=== PATIENT | female | born 1965 | race Caucasian/White ===

== ENCOUNTER 2016-04-21 14:46 | Emergency (ER) | payer OTHER ==
[~2016-04-21 14:46] MED LIST: PREDNISONE 20MG20 MG PO; VISTARIL25 MG PO
[2016-04-21 14:55] VITALS: BP 145/86
--- NOTE | 2016-04-21 16:59 | ED ANKLE/FOOT INJURY COMPLAINT ---
History of Present Illness General Chief Complaint: Foot or Ankle Injury Stated Complaint: PT LEFT ANKLE IS HAVING PAIN Source: patient Exam Limitations: no limitations Vital Signs & Intake/Output Vital Signs & Intake/Output Vital Signs Date Time Temp Pulse Resp B/P Pulse O2 O2 Flow FiO2 Ox Delivery Rate 04/21 1455 97.0 82 20 145/86 96 Room Air ED Intake and Output 04/22 0000 04/21 1200 Intake Total 0 Output Total Balance 0 Intake, Oral 0 Allergies Coded Allergies: MDX - Poison Desiree Extract, Alum Prec (POISON DESIREE EXTRACT, ALUM PRECIPITAT) ( Intermediate, RASH 01/11/12) Reconcile Medications Hydroxyzine Pamoate (Vistaril) 25 MG CAP 1 CAP PO BID PRN ITCHING Prednisone 20 MG TABLET 2 TAB PO DAILY CONTACT DERMATITIS Triage Note: PT C/O LEFT ANKLE PAIN. STATES SHE WAS WALKING DOWN A HILL THAT HAD SAND ON IT AND SHE FELL. STATES THIS HAPPENED 3 WEEKS AGO AND ITS NOT GETTING BETTER Triage Nurses Notes Reviewed? yes HPI: THIS PATIENT is a 50-year-old female who presented to the emergency department today for evaluation of left ankle pain. The patient for that she slid down a hill the headstand on it approximately 3 weeks ago and twisted her ankle. She reported that sometimes the pain gets up to a 10 out of 10 and is worse with movement and ambulation. She has been walking on her left ankle. The patient denies any knee pain or hip pain. She denied any numbness or tingling in her extremities. The pain has been constant. (MYESHA SANDERS PA-C) Past History Travel History Traveled to [place] past 21 day No Medical History Any Pertinent Medical History? see below for history Cardiovascular: hypertension Musculoskeletal: osteoarthritis Endocrine: THYROID DISORDER Tetanus Vaccine: 10/11/12 Surgical History Surgical History: non-contributory Psychosocial History What is your primary language Citizen Of [place] Tobacco Use: Never used ETOH Use: denies use Illicit Drug Use: denies illicit drug use Family History Hx Contributory? No (MYESHA SANDERS PA-C) Review of Systems Review of Systems Constitutional: Reports: no symptoms. EENTM: Reports: no symptoms. Respiratory: Reports: no symptoms. Cardiovascular: Reports: no symptoms. GI: Reports: no symptoms. Genitourinary: Reports: no symptoms. Musculoskeletal: Reports: see HPI. Skin: Reports: no symptoms. Neurological/Psychological: Reports: no symptoms. All Other Systems: Reviewed and Negative (TOMMY CANELA,MYESHA) Physical Exam Physical Exam Leg/Knee/Thigh Left: normal range of motion, normal inspection Comments: Well-developed well-nourished person in no acute distress HEENT: Head normocephalic, moist mucous membranes Neck: Supple, no lymphadenopathy Back: Normal inspection Respiratory: No respiratory distress. Speaking in full sentences Left ankle/foot: Mild amount of edema to the lateral malleolus. Full range of motion at the ankle. Tenderness to palpation over the lateral malleolus. Dorsalis pedis and posterior tibialis pulses 2+ and strong. Capillary refill less than 2 seconds Neuro: Alert and oriented x3 Psych: Mood affect normal, normal memory normal judgment. Skin: Warm and dry, no rash on exposed skin (MYESHA SANDERS PA-C) Progress Differential Diagnosis: DVT, CHF, cellulitis, septic arthritis, gout, fracture, dislocation, sprain, contusion, compartmental syndrome Plan of Care: Orders Procedure Date/time Status Durable Medical Equipment 04/21 1734 Active Diagnostic Imaging: Viewed by Me: Radiology Read. Discussed w/RAD: Radiology Read. Radiology Impression: PATIENT: MEGAN BROWN PRESENT AGE: 50 PATIENT ACCOUNT NO: [id number] : 65 LOCATION: [facility] ORDERING PHYSICIAN: NELLY SHEEHAN SERVICE DATE: 04/21/16 EXAM TYPE: RAD - XRY-ANKLE 3 OR MORE VIEWS L EXAMINATION: XR ANKLE, LEFT CLINICAL INFORMATION: Pain status post injury. Evaluate for fracture. COMPARISON: None TECHNIQUE: AP, lateral, and mortise views of the left ankle. FINDINGS: No acute fracture or dislocation. Old ununited avulsion fragment versus accessory ossicle is seen at the tip of the medial malleolus. Joint spaces are maintained. Mild degenerative spurring is seen at the medial malleolus. Posterior calcaneal spurring is seen at the Achilles tendon insertion site. No joint effusion. IMPRESSION: No acute fracture or dislocation seen. DICTATED BY: PAULA SHAH MD DATE/TIME DICTATED:04/21/161718 MILK BOTTLING MACHINE OPERATOR:KD DATE/TIME TRANSCRIBED:1718 CONFIDENTIAL, DO NOT COPY WITHOUT APPROPRIATE AUTHORIZATION. < Electronically signed in Other Vendor System> SIGNED BY: PAULA SHAH MD 04/21/16 1727 (MYESHA SANDERS PA-C) Departure Departure Disposition: HOME OR SELF CARE Condition: Stable Clinical Impression Primary Impression: Ankle sprain Qualifiers: Encounter type: initial encounter Involved ligament of ankle: unspecified ligament Laterality: left Qualified Code: S93.402A - Sprain of unspecified ligament of left ankle, initial encounter Referrals: VIKKI GONZALEZ,ANU Gayle (PCP/Family) ESHA GONZALEZ,DODIE Additional Instructions: Please rest your ankle. Use the Kerwin wrap provided to you here in the emergency Department for extra compression, stability, and support of your ankle. Use the crutches provided to you as needed. Weightbearing as tolerated. Apply ice to the affected area for 15-20 minutes, 3-4 times a day. Elevate your ankle when possible. Follow-up with the orthopedic physician should her symptoms persist or worsen after one week. Return for any worsening symptoms or concerns. Departure Forms: Customer Survey General Discharge Information (MYESHA SANDERS PA-C) PA/ANAESTHESIOLOGIST Co-Sign Statement Statement: ED Attending supervision documentation- [] I saw and evaluated the patient. I have also reviewed all the pertinent lab results and diagnostic results. I agree with the findings and the plan of care as documented in the PA's/ANAESTHESIOLOGIST's documentation. [X] I have reviewed the ED Record and agree with the PA's/ANAESTHESIOLOGIST's documentation. [] Additions or exceptions (if any) to the PAs/ANAESTHESIOLOGIST's note and plan are summarized below: [] (ROLDAN GONZALEZ,JOHN)
--- NOTE | 2016-04-21 17:27 | RADIOLOGY REPORT ---
EXAMINATION: XR ANKLE, LEFT CLINICAL INFORMATION: Pain status post injury. Evaluate for fracture. COMPARISON: None TECHNIQUE: AP, lateral, and mortise views of the left ankle. FINDINGS: No acute fracture or dislocation. Old ununited avulsion fragment versus accessory ossicle is seen at the tip of the medial malleolus. Joint spaces are maintained. Mild degenerative spurring is seen at the medial malleolus. Posterior calcaneal spurring is seen at the Achilles tendon insertion site. No joint effusion. IMPRESSION: No acute fracture or dislocation seen.
== END 2016-04-21 17:57 ==
LOC: ERH 14:46
DX: S93.402A Sprain of unspecified ligament of left ankle, initial encounter (principal); X50.9XXA Other and unspecified overexertion or strenuous movements or postures, initial encounter
CPT/HCPCS: 73610-LT

== ENCOUNTER 2016-05-27 09:06 | Emergency (ER) | payer OTHER ==
[~2016-05-27] VITALS: Ht 154.9 cm; Wt 86.2 kg
[2016-05-27 09:10] VITALS: BP 148/109
[2016-05-27] MEDS ORDERED: ZITHROMAX250 M2 PO (09:32)
--- NOTE | 2016-05-27 09:33 | ED THROAT/DENTAL COMPLAINT ---
History of Present Illness General Chief Complaint: Sore Throat, Dental Pain Stated Complaint: SORE THROAT Source: patient Exam Limitations: no limitations Vital Signs & Intake/Output Vital Signs & Intake/Output Vital Signs Date Time Temp Pulse Resp B/P Pulse O2 O2 Flow FiO2 Ox Delivery Rate 05/27 0910 96.1 89 20 148/109 95 Room Air Allergies Coded Allergies: MDX - Poison Yamileth Extract, Alum Prec (POISON YAMILETH EXTRACT, ALUM PRECIPITAT) ( Intermediate, RASH 01/11/12) No Known Drug Allergies (NONE 05/27/16) Reconcile Medications Azithromycin (Zithromax) 250 MG TABLET 1 DP PO AD infection 2 the first day followed by 1 for days 2-5 Hydroxyzine Pamoate (Vistaril) 25 MG CAP 1 CAP PO BID PRN ITCHING Prednisone 20 MG TABLET 2 TAB PO DAILY CONTACT DERMATITIS Triage Note: C/O SORE THORAT, RIGHT EAR PAIN AND COUGH X 4 DAYS. Triage Nurses Notes Reviewed? yes HPI: 50-year-old female right through triaged to room 10 for evaluation of cough, congestion, right ear pain, sore throat for 4 days. She reports that she is having post nasal drip, cough with white phelgm but no fever or chills. She denies chest pain, abd pain, SOB, N/V/D. She denies any body aches. She has not taken anything at home for treatment. She states she has a mild ache in her throat and right ear at this time. (FARHANA CABRERA APRN) Past History Travel History Traveled to [place] past 21 day No Medical History Any Pertinent Medical History? see below for history Cardiovascular: hypertension Musculoskeletal: osteoarthritis Endocrine: THYROID DISORDER Tetanus Vaccine: 10/11/12 Surgical History Surgical History: non-contributory Psychosocial History What is your primary language Nepali Tobacco Use: Never used ETOH Use: denies use Illicit Drug Use: denies illicit drug use Family History Hx Contributory? No (FARHANA CABRERA APRN) Review of Systems Review of Systems Constitutional: Denies: no symptoms. EENTM: Reports: ear pain, nasal congestion, throat pain. Respiratory: Denies: no symptoms, see HPI, cough, hemoptysis, orthopnea, short of breath, sputum production, stridor, wheezing. Cardiovascular: Denies: no symptoms, see HPI, chest pain, edema, orthopena, palpitations, peripheral edema, syncope. GI: Denies: no symptoms, see HPI, abdominal pain, bloating, constipation, diarrhea, distention, bowel incontinence, melena, nausea, bloody stool, changes in stool, vomiting, steatorrhea. Genitourinary: Denies: no symptoms, see HPI, discharge, dysuria, frequency, hematuria, hesitation, nocturia, pain, urgency. Musculoskeletal: Denies: no symptoms, see HPI, back pain, gout, joint pain, joint swelling, muscle pain, muscle stiffness, neck pain. Skin: Denies: no symptoms, see HPI, cysts, change in skin color, change in hair/nails, dryness, erythema, jaundice, lesions, lymphangitis, lumps, moles, rash. Neurological/Psychological: Denies: no symptoms, see HPI, anxiety, ataxia, cognitive dysfunction, confusion, depressed, dementia, emotional problems, headache, numbness, paresthesia, pre- existing deficit, petit mal seizures, tingling, tremors, tonic-clonic seizures, unable to move lower ext, unable to move upper ext, weakness, other. Hematologic/Endocrine: Denies: no symptoms, see HPI, bruising, bleeding, polyuria, polydipsia, other. Immunologic/Allergic: Denies: no symptoms, see HPI, splenectomy, HIV/AIDS, lymphadenopathy, other. (FARHANA CABRERA APRN) Physical Exam Physical Exam General Appearance: well developed/nourished, no apparent distress, alert, awake Head: atraumatic, normal appearance Eyes: Bilateral: normal appearance, PERRL, EOMI. Ears: Right: Tympanic dull. Bilateral: canal normal. Nose: normal inspection Mouth/Throat: pharynx swelling, pharynx tenderness Neck: lymphadenopathy (L) Cardiovascular/Respiratory: normal breath sounds, regular rate/rhythm Back: normal inspection, normal range of motion Neurologic/Psych: no motor/sensory deficits, awake, alert, oriented x 3, normal gait, normal mood/affect Skin: intact, normal color Core Measures ACS in differential dx? No Severe Sepsis Present: No Septic Shock Present: No (FARHANA CABRERA APRN) Progress Differential Diagnosis: strep pharyngitis, viral pharyngitis, sinusitis Plan of Care: Antibiotics, salt water gargles, Tylenol/Motrin for pain or fever (FARHANA CABRERA APRN) Departure Departure Time of Disposition: 929 Disposition: HOME OR SELF CARE Condition: Stable Clinical Impression Primary Impression: Pharyngitis Qualifiers: Pharyngitis/tonsillitis etiology: unspecified etiology Qualified Code: J02.9 - Acute pharyngitis, unspecified Referrals: VIKKI GONZALEZ,ANU Gayle (PCP/Family) Additional Instructions: Saltwater gargles 3-4 times a day for the next few days. Tylenol and/or Motrin has needed for pain or fever. Follow-up with Dr. Wilder who do not feel better in a week. Z-Nigel as directed Departure Forms: Customer Survey General Discharge Information Prescriptions: Current Visit Scripts Azithromycin (Zithromax) 1 DP PO AD #6 TAB 2 the first day followed by 1 for days 2-5 (FARHANA CABRERA APRN) PA/TOOL REPAIRER BENCH Co-Sign Statement Statement: ED Attending supervision documentation- [] I saw and evaluated the patient. I have also reviewed all the pertinent lab results and diagnostic results. I agree with the findings and the plan of care as documented in the PA's/TOOL REPAIRER BENCH's documentation. [X] I have reviewed the ED Record and agree with the PA's/TOOL REPAIRER BENCH's documentation. [] Additions or exceptions (if any) to the PAs/TOOL REPAIRER BENCH's note and plan are summarized below: [] (GEORGIA GONZALEZ,WILBERTO Hernández)
== END 2016-05-27 09:36 ==
LOC: ERH 09:06
DX: J02.9 Acute pharyngitis, unspecified (principal)

== ENCOUNTER 2016-06-12 09:30 | Emergency (ER) | payer OTHER ==
[~2016-06-12] VITALS: Ht 157.5 cm; Wt 89.4 kg
[~2016-06-12 09:30] MED LIST changes: +ZITHROMAX250 M2 PO
[2016-06-12 09:36] VITALS: BP 168/98
--- NOTE | 2016-06-12 09:40 | ED EAR COMPLAINT ---
History of Present Illness General Chief Complaint: Ear Complaints Stated Complaint: ?Q-TIP COTTON STUCK IN R EAR Source: patient, old records Exam Limitations: no limitations Vital Signs & Intake/Output Vital Signs & Intake/Output Vital Signs Date Time Temp Pulse Resp B/P Pulse O2 O2 Flow FiO2 Ox Delivery Rate 06/12 0936 98.7 77 20 168/98 99 Room Air Allergies Coded Allergies: MDX - Poison Yamileth Extract, Alum Prec (POISON YAMILETH EXTRACT, ALUM PRECIPITAT) ( Intermediate, RASH 01/11/12) No Known Drug Allergies (NONE 05/27/16) Reconcile Medications Azithromycin (Zithromax) 250 MG TABLET 1 DP PO AD infection 2 the first day followed by 1 for days 2-5 Hydroxyzine Pamoate (Vistaril) 25 MG CAP 1 CAP PO BID PRN ITCHING Meclizine HCl 25 MG TABLET 1 TAB PO TIDPRN PRN dizziness Prednisone 20 MG TABLET 2 TAB PO DAILY CONTACT DERMATITIS Triage Note: PT TO ED C/O COTTON FROM Q-TIP STUCK IN RIGHT EAR. Triage Nurses Notes Reviewed? yes Onset: Abrupt Duration: day(s): (1), constant Timing: recent history Injury Environment: home Severity: mild Severity Numbers: 3 No Modifying Factors: none Associated Symptoms: denies HPI: 50-year-old female presents emergency room for evaluation complaining of foreign body sensation to right ear since last night which he states that a cotton piece of a Q-tip got stuck in her ear. She denies any discharge tinnitus or hearing loss. She denies a left ear symptoms. She denies any other complaints no history of similar symptoms in the past. She is not taken anything for symptoms. No rhinorrhea sore throat fever or chills no dizziness Past History Travel History Traveled to [place] past 21 day No Medical History Any Pertinent Medical History? see below for history Cardiovascular: hypertension Respiratory: asthma Musculoskeletal: osteoarthritis Endocrine: THYROID DISORDER Tetanus Vaccine: 10/11/12 Surgical History Surgical History: non-contributory Psychosocial History What is your primary language Greenlandic Tobacco Use: Never used ETOH Use: denies use Illicit Drug Use: denies illicit drug use Family History Hx Contributory? No Review of Systems Review of Systems Constitutional: Reports: see HPI. All Other Systems: Reviewed and Negative Comments Review of systems: See HPI, All other systems negative. Constitutional, no chills no fever, no malaise HEENT: no sore throat no congestion, ear pain Cardiovascular: No chest pain , no palpitation Skin, no jaundice no rashes, no change in skin Respiratory: No dyspnea no cough no sputum GI: No nausea no vomiting, no diarrhea, Muscle skeletal: No joint pain, no joint swelling, no back pain, no neck pain, Neurologic: no headache Psych: No stress Heme/endocrine: No bruising no bleeding Immunology: No lymphadenopathy Physical Exam Physical Exam General Appearance: well developed/nourished, no apparent distress, alert, awake Ears: Right: foreign body. Comments: Well-developed well-nourished patient in no apparent distress. Head/Face: Atraumatic, no maxillary/frontal sinus tenderness, no facial swelling Eyes: PERRL, EOMI, no conjunctival injection. No nystagmus Ear: There is a small amount of cotton in the right ear canal, there is no visualized perforation of the TM no erythema no swelling, there is no cerumen External auditory canal and Tympanic membranes clear, no erythema, the left ear is clear with no foreign body or erythema Nose: atraumatic.Normal inspection: No bleeding Throat: Moist mucous membranes.Pharynx normal. No pharyngeal erythema/exudate seen. No stridor/drooling or assymetry. No swelling or edema. Neck: Supple, no lymphadenopathy, FROM Back: FROM, Nontender Cardiovascular: Regular rate and rhythms no murmurs rubs or gallops, Respiratory: Chest nontender.There were no bony deformities, no asymmetry. No respiratory distress. Patient speaking in full complete sentences. Breath sounds clear to auscultation bilaterally: NO W/R/R Extremities: full range of motion Neuro: Alert and oriented x3 Skin: Warm & dry;No appreciable rash on exposed skin Psych: Mood affect normal, normal memory normal judgment. Progress Differential Diagnoses I considered the following diagnoses in my evaluation of the patient: otitis externa, media, ear foreign body, tm perforation Plan of Care: The right ear was flushed several times with 15 mL of room temperature normal saline, the bits of, and were removed successfully, after irrigation the ear was once again visualized there is no perforation of the TM there is no evidence of swelling or erythema, there is no remaining foreign body or cerumen noted I discussed with the patient plan of care and need for close follow-up with her primary care physician, ear nose and throat doctor burn symptoms persist answered all her questions she feels comfortable plan Initial ED EKG: none Departure Departure Time of Disposition: 1009 Disposition: HOME OR SELF CARE Condition: Stable Clinical Impression Primary Impression: Ear foreign body Referrals: DADA GONZLAEZ,ARCHANA FLOREZ MD,ANU Gayle (PCP/Family) Additional Instructions: follow up with your pmd or ear nose and throat physician dr chowdary. return with any concerns. meclizine as directed for dizziness Departure Forms: Customer Survey General Discharge Information Prescriptions: Current Visit Scripts Meclizine HCl 1 TAB PO TIDPRN PRN dizziness #15 TAB
[2016-06-12] MEDS ORDERED: MECLIZINE HCL25 MG PO ×2 (10:35→13:11)
== END 2016-06-12 10:52 ==
LOC: ERH 09:30
DX: T16.1XXA Foreign body in right ear, initial encounter (principal)